=== PATIENT | female | born 1995 | race Caucasian/White ===

== ENCOUNTER 2018-04-06 00:32 | Emergency (ER) | payer OTHER ==
--- NOTE | 2018-04-06 00:43 | ER Report ---
History and Physical Time Seen By MD: 00:41 HPI/ROS CHIEF COMPLAINT: Passed out intoxicated, vomiting HISTORY OF PRESENT ILLNESS: 22-year-old female brought in by her friends with concerns over her unresponsive condition secondary to alcohol. She's had numerous episodes of emesis. Friends report, no fall or head injury. Friends deny other substance use. REVIEW OF SYSTEMS: Respiratory: No cough, no dyspnea. Cardiovascular: No chest pain, no palpitations. Gastrointestinal: As above Musculoskeletal: No back pain. Allergies: Coded Allergies: UNABLE TO OBTAIN (Unverified , 04/06/18) PT PASSED OUT INTOXICATED. Reviewed Nurses Notes: Yes Old Medical Records Reviewed: Yes Constitutional Vital Sign - Last 24 Hours 04/06/18 04/06/18 04/06/18 04/06/18 00:36 00:41 00:47 01:02 Pulse 53 58 76 Resp 18 B/P (MAP) 100/67 (78) 100/67 109/88 (95) Pulse Ox 94 97 95 O2 Delivery Room Air 04/06/18 04/06/18 04/06/18 04/06/18 01:17 01:30 01:32 01:37 Pulse 55 56 58 B/P (MAP) 91/56 (68) Pulse Ox 93 94 94 04/06/18 04/06/18 04/06/18 04/06/18 01:52 02:00 02:04 02:07 Temp 97.3 Pulse 63 81 B/P (MAP) 82/69 (73) Pulse Ox 96 88 04/06/18 04/06/18 04/06/18 04/06/18 02:22 02:30 02:37 02:52 Pulse 63 61 64 B/P (MAP) 97/55 (69) Pulse Ox 94 92 92 04/06/18 03:00 B/P (MAP) 101/52 (68) Physical Exam General Appearance: The patient is alert, has no immediate need for airway protection and no current signs of toxicity. Palpation of the head and neck are without evidence of trauma. Patient tears saturated with emesis. Eyes: Pupils equal and round no injection. PERRLA, oropharynx with heavy odor of emesis and EtOH Respiratory: Chest is non tender, lungs are clear to auscultation. Cardiac: regular rate and rhythm Gastrointestinal: Abdomen is soft and non tender, no masses, bowel sounds normal. Musculoskeletal: Neck: Neck is supple and non tender. No meningismus Extremities have full range of motion and are non tender. Skin: No rashes or lesions. DIFFERENTIAL DIAGNOSIS: After history and physical exam differential diagnosis was considered for altered mental status including but not limited to hypoglycemia, infectious process, electrolyte abnormality, call poisoning. Head injury and intoxicants. Medical Decision Making Data Points Laboratory Hematology Test 04/06/18 01:00 Human Chorionic Gonadotropin, Qual Negative (NEGATIVE) Serum Alcohol 251 mg/dl Chemistry Test 04/06/18 01:00 Human Chorionic Gonadotropin, Qual Negative (NEGATIVE) Serum Alcohol 251 mg/dl Toxicology Test 04/06/18 01:00 Serum Alcohol 251 mg/dl ED Course/Re-evaluation Clinical Indication for ER IV: Hydration, IV Access ED Course Patient was admitted to an examination room. H&P was done. The differential diagnosis was considered. On clinical examination, patient appears grossly alcohol intoxicated. Her hair is full of emesis. Patient's treated with IV fluid hydration, Zofran 8 mg IV to control her vomiting. A blood alcohol level returns at 251. Patients monitor for several hours until she awakens in his sober and ambulatory. She is released to responsible sober friends to go home and sleep it off. Decision to Disposition Date: Apr 06, 2018 Decision to Disposition Time: 02:25 Depart Departure Latest Vital Signs Vital Signs Date Time Temp Pulse Resp B/P (MAP) Pulse Ox O2 Delivery O2 Flow Rate FiO2 04/06/18 03:00 101/52 (68) 04/06/18 02:52 64 92 04/06/18 02:04 97.3 04/06/18 00:41 18 Room Air Impression: Primary Impression: Alcohol poisoning Condition: Improved Disposition: HOME OR SELF-CARE Patient Instructions: Abuse of Alcohol (ED) Additional Instructions: Avoid drinking alcohol to excess Problem Qualifiers Primary Impression: Alcohol poisoning Encounter type: initial encounter Injury intent: accidental or unintentional Qualified Codes: T51.91XA - Toxic effect of unspecified alcohol, accidental (unintentional), initial encounter JENNIFER PENN DO Apr 06, 2018 00:43
[2018-04-06] MEDS ORDERED: ONDANSETRON 4 MG/2 ML VIAL IVP ONE (00:45)
[2018-04-06 03:00] VITALS: BP 101/52
== END 2018-04-06 03:15 | disposition home or self-care (01) ==
LOC: ER 01:27
DX: T51.91XA Toxic effect of unspecified alcohol, accidental (unintentional), initial encounter (principal); Y90.8 Blood alcohol level of 240 mg/100 ml or more
CPT/HCPCS: 80320; 84703; 96374; 99283; J2405

== ENCOUNTER 2018-05-06 20:11 | Emergency (ER) | payer OTHER ==
--- NOTE | 2018-05-06 20:18 | ER Report ---
History and Physical Time Seen By MD: 20:18 Hx. of Stated Complaint: PT REPORTS HER JAW HAS BEEN LOCKED OPEN FOR 40 MINUTES NOW. HPI/ROS CHIEF COMPLAINT: Jaw pain HISTORY OF PRESENT ILLNESS: This is a 22-year-old female who presents to the emergency department for a "locked jaw". The patient states that approximate 40 minutes prior to arrival, she was yawning and her jaw dislocated, this is been happening quite frequently however typically on the left side as the patient states and after a couple of minutes her jaw does reduce on its own. Patient states she feels as though both sides have dislocated tonight and has been unsuccessful at reducing this at home. Patient's mouth is open upon arrival, no distress, however she is in obvious discomfort. No recent fevers or chills. No nausea or vomiting. No chest pain or shortness of breath. REVIEW OF SYSTEMS: Respiratory: No cough, no dyspnea. Cardiovascular: No chest pain, no palpitations. Gastrointestinal: No vomiting, no abdominal pain. Musculoskeletal: As above. Allergies: Coded Allergies: No Known Drug Allergies (Unverified , 05/06/18) Home Meds No Active Prescriptions or Reported Meds Past Medical/Surgical History The patient has a past medical and surgical history of Jaw dislocation. Unable To Obtain Past Medical: Unable to Obtain/Update Reviewed Nurses Notes: Yes Constitutional Vital Sign - Last 24 Hours 05/06/18 20:14 Temp 97.9 Pulse 77 Resp 18 B/P (MAP) 119/82 Pulse Ox 97 O2 Delivery Room Air Physical Exam General Appearance: The patient is alert, has no immediate need for airway protection and no current signs of toxicity. Eyes: Pupils equal and round no injection. Respiratory: Chest is non tender, lungs are clear to auscultation. Cardiac: regular rate and rhythm. Gastrointestinal: Abdomen is soft and non tender, no masses, bowel sounds normal. Musculoskeletal: Neck: Neck is supple and non tender. Obvious bilateral, temporomandibular joint dislocation, mouth is open, unable to close, TMJ is palpable, does increase discomfort with light palpation. No crepitus. Extremities have full range of motion and are non tender. Skin: No rashes or lesions. DIFFERENTIAL DIAGNOSIS: After history and physical exam differential diagnosis was considered for temporomandibular joint dislocation, fracture. Medical Decision Making ED Course/Re-evaluation ED Course The patient was admitted to room. A history of physical or pain. Differential diagnoses were considered. After examination the patient, determined this was a nontraumatic event, was able to reduce her mandible with firm steady pressure, could feel the child reduce, patient had immediate relief of her symptoms. Patient is able to speak without discomfort. Patient was given 600 mg by mouth ibuprofen, 1 Flexeril, 1 take-home pack of Flexeril. I also highly recommended following up with an oral surgeon for definitive care and treatment. Patient expressed understanding and was discharged home. Decision to Disposition Date: May 06, 2018 Decision to Disposition Time: 20:33 Depart Departure Latest Vital Signs Vital Signs Date Time Temp Pulse Resp B/P (MAP) Pulse Ox O2 Delivery O2 Flow Rate FiO2 05/06/18 20:14 97.9 77 18 119/82 97 Room Air Impression: Primary Impression: Closed dislocation of mandible Condition: Improved Disposition: HOME OR SELF-CARE Referrals: MARGIE PEREZ DDS, MD New Scripts No Active Prescriptions or Reported Meds Patient Instructions: Mandibular Dislocation (ED) Additional Instructions: As this has been happening more frequently, I highly recommend follow up with an oral surgeon for definitive care. Take the Flexeril for severe muscle pain, it may make you drowsy. Take 600mg of Ibuprofen as needed for pain. get plenty of rest. Drink plenty of water. Be sure to eat soft foods for the next 1-2 days. Return to the ED for any other concerns or worsening symptoms. Problem Qualifiers Primary Impression: Closed dislocation of mandible Encounter type: initial encounter Qualified Codes: S03.00XA - Dislocation of jaw, unspecified side, initial encounter JAMES BAILEY-ADELINE May 06, 2018 20:18
[2018-05-06 20:30] VITALS: BP 133/110
[2018-05-06] MEDS ORDERED: IBUPROFEN 600 MG TAB PO ONE (20:30)
[2018-05-06] MEDS ORDERED: CYCLOBENZAPRINE HCL 10 MG TAB PO ONE (20:30)
[2018-05-06] MEDS ORDERED: CYCLOBENZAPRINE HCL 10 MG TH PO ONE (20:30)
== END 2018-05-06 20:43 | disposition home or self-care (01) ==
LOC: ER 20:29
DX: S03.00XA Dislocation of jaw, unspecified side, initial encounter (principal)
CPT/HCPCS: 99283